=== PATIENT | male | born 1990 | race Caucasian/White ===

== ENCOUNTER → 2019-07-23 | Outpatient (CLI) | payer OTHER | END | disposition home or self-care (01) | LOC: RX STUDY 07:59 | DX: R13.12 Dysphagia, oropharyngeal phase (principal) ==

== ENCOUNTER 2019-07-27 07:21 | Outpatient (CLI) | payer OTHER | END 2019-07-27 07:30 | disposition home or self-care (01) | LOC: NUCLEAR 07:21 | DX: R11.0 Nausea (principal); K31.84 Gastroparesis | CPT/HCPCS: 78264; A9541 ==